=== PATIENT | female | born 1995 | race Caucasian/White ===

== ENCOUNTER 2017-10-22 22:10 | Emergency (ER) | payer BC ==
[2017-10-22 22:34] VITALS: BP 139/86
[2017-10-22] MEDS ORDERED: Alum Hydrox/Mag Hydrox/Simeth 15 ML, Lidocaine 2% 15 ML PO ONE ×2 (22:44)
[2017-10-23] MEDS ORDERED: Famotidine 20 MG Tab PO ONE (00:28)
--- NOTE | 2017-10-23 00:30 | EDM.PDOC ---
ED HPI GENERAL MEDICAL PROBLEM - General Chief Complaint: Respiratory Problem Stated Complaint: PAIN IN CHEST AREA Time Seen by Provider: 10/22/17 22:25 Source of Information: Reports: Patient History Limitations: Reports: No Limitations - History of Present Illness INITIAL COMMENTS - FREE TEXT/NARRATIVE: pt arrived having pain in her lower chest. At first she had the sensation that something was caught in the esophagus. It does hurt more when she takes a deep breath. She has not vomited. Onset: Today, Other ( She has had the discomfort all afternoon. 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: Psychiatric History: Reports: ADHD Endocrine/Metabolic History: Reports: Hypothyroidism - Infectious Disease History Infectious Disease History: Reports: Chicken Pox - Past Surgical History HEENT Surgical History: Reports: Adenoidectomy, Tonsillectomy Other HEENT Surgeries/Procedures: adnoids GI Surgical History: Reports: Cholecystectomy Social & Family History - Tobacco Use Smoking Status *Q: Never Smoker - Caffeine Use Caffeine Use: Reports: Coffee, Energy Drinks, Soda - Recreational Drug Use Recreational Drug Use: No ED ROS GENERAL - Review of Systems Review Of Systems: See Below Constitutional: Reports: No Symptoms HEENT: Reports: No Symptoms Respiratory: Reports: No Symptoms Cardiovascular: Reports: Other (pain in the lower chest like something is in the esphogus. ) Endocrine: Reports: No Symptoms GI/Abdominal: Reports: Abdominal Pain, Other (pain in the upper abdoman. ) : Reports: No Symptoms Musculoskeletal: Reports: No Symptoms Skin: Reports: No Symptoms ED EXAM, GENERAL - Physical Exam Exam: See Below Free Text/Narrative:: pt arrived with pain in the middle of her lower chest. She felt like something was caught in the espohagus. Exam Limited By: No Limitations General Appearance: Alert, Moderate Distress Ears: Normal TMs Nose: Normal Inspection Throat/Mouth: Normal Inspection Head: Atraumatic Neck: Normal Inspection Respiratory/Chest: No Respiratory Distress, Other ( chest was completely clear. ) Cardiovascular: Regular Rate, Rhythm GI/Abdominal: Soft, Other (mild epigastric tenderness) (Female) Exam: Deferred Rectal (Female) Exam: Deferred Back Exam: Normal Inspection Extremities: Normal Inspection Neurological: Alert, Oriented, Normal Cognition Course - Vital Signs Last Recorded V/S: Last Vital Signs Temp 36.6 C 10/22/17 22:51 Pulse 83 10/22/17 22:51 Resp 16 10/22/17 22:51 BP 139/86 10/22/17 22:51 Pulse Ox 100 10/22/17 22:51 - Orders/Labs/Meds Orders: Active Orders 24 hr Category Date Time Status Chest 2V [CR] Stat Exams 10/22/17 22:43 Taken Labs: Laboratory Tests 10/22/17 10/22/17 Range/Units 22:59 22:59 WBC 8.0 (4.5-11.0) K/uL RBC 4.58 (3.30-5.50) M/uL Hgb 12.7 (12.0-15.0) g/dL Hct 37.8 (36.0-48.0) % MCV 83 (80-98) fL MCH 28 (27-31) pg MCHC 34 (32-36) % Plt Count 313 (150-400) K/uL Neut % (Auto) 55 (36-66) % Lymph % (Auto) 35 (24-44) % [place] % (Auto) 8 H (2-6) % Eos % (Auto) 2 (2-4) % Baso % (Auto) 0 (0-1) % Sodium 137 L (140-148) mmol/L Potassium 4.0 (3.6-5.2) mmol/L Chloride 102 (100-108) mmol/L Carbon Dioxide 27 (21-32) mmol/L Anion Gap 12.0 (5.0-14.0) mmol/L BUN 14 (7-18) mg/dL Creatinine 0.7 (0.6-1.0) mg/dL Est Cr Clr Drug Dosing 102.51 mL/min Estimated GFR (MDRD) > 60 (>60) Glucose 103 (74-106) mg/dL Calcium 8.9 (8.5-10.1) mg/dL Total Bilirubin 0.2 (0.2-1.0) mg/dL AST 22 (15-37) U/L ALT 30 D (12-78) U/L Alkaline Phosphatase 48 (46-116) U/L Total Protein 7.4 (6.4-8.2) g/dL Albumin 3.7 (3.4-5.0) g/dL Globulin 3.7 H (2.3-3.5) g/dL Albumin/Globulin Ratio 1.0 L (1.2-2.2) Meds: Medications Discontinued Medications Generic Name Dose Route Start Last Admin Trade Name Rebecca PRN Reason Stop Dose Admin Al Hydroxide/Mg Hydroxide 15 0 ml 10/22/17 22:44 10/22/17 22:48 ml/ Lidocaine HCl 15 ml PO 10/22/17 22:45 15 ml ONETIME ONE Administration Famotidine 20 mg 10/23/17 00:28 Pepcid PO 10/23/17 00:29 ONETIME ONE - Re-Assessments/Exams Free Text/Narrative Re-Assessment/Exam: 10/23/17 00:38 pt had normal chems and normal wbc. Her chest xray was normal. She was given a Gi cocktail which helpful and at this point her pain is gone. Departure - Departure Time of Disposition: 00:26 Disposition: Home, Self-Care 01 Condition: Fair Clinical Impression: GERD (gastroesophageal reflux disease) - Discharge Information Referrals: Keeley Heredia CNM [Primary Care Provider] - Forms: ED Department Discharge Care Plan Goals: avoid eating large meals and then lying flat, prilosec 20mg each am, maalox 2 tbsp at bedtime, rtc if problems. - My Orders Last 24 Hours: My Active Orders 10/22/17 22:43 Chest 2V [CR] Stat - Assessment/Plan Last 24 Hours: My Active Orders 10/22/17 22:43 Chest 2V [CR] Stat
--- NOTE | 2017-10-23 11:41 | CR ---
CHEST: 2 view CLINICAL HISTORY:SOB, chest pain COMPARISON:None FINDINGS: Heart size and pulmonary vascularity are normal. Lung reza are clear. Impression: No acute cardiopulmonary process.
== END 2017-10-23 00:40 | disposition home or self-care (01) ==
LOC: JP.ED 22:10
DX: K21.9 Gastro-esophageal reflux disease without esophagitis (principal)
CPT/HCPCS: 36415; 71046; 80053; 85025; 99285; A9270

== ENCOUNTER 2018-06-23 12:08 | Emergency (ER) | payer BC ==
[2018-06-23 12:52] VITALS: BP 124/85
--- NOTE | 2018-06-23 13:07 | EDM.PDOC ---
ED HPI GENERAL MEDICAL PROBLEM - General Chief Complaint: Gastrointestinal Problem Stated Complaint: STOMACH PAIN, NAUSEA, LIGHT HEADED Time Seen by Provider: 06/23/18 12:50 Source of Information: Reports: Patient History Limitations: Reports: No Limitations - History of Present Illness Onset: Sudden (woke at 2am with vomiting and light-headedness. slept entire night after that. 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: Neurological History: Reports: Migraines Psychiatric History: Reports: ADHD Endocrine/Metabolic History: Reports: Hypothyroidism, Obesity/BMI 30+ Hematologic History: Reports: Anemia - Infectious Disease History Infectious Disease History: Reports: Chicken Pox - Past Surgical History HEENT Surgical History: Reports: Adenoidectomy, Tonsillectomy GI Surgical History: Reports: Cholecystectomy Female Surgical History: Reports: Section Social & Family History - Tobacco Use Smoking Status *Q: Former Smoker Used Tobacco, but Quit: Yes Month/Year Tobacco Last Used: 1 year - Caffeine Use Caffeine Use: Reports: Coffee, Soda - Recreational Drug Use Recreational Drug Use: No - Living Situation & Occupation Occupation: Employed (lives with her Partner and children, works at the [employer]) ED ROS GENERAL - Review of Systems Review Of Systems: ROS reveals no pertinent complaints other than HPI. Constitutional: Reports: No Symptoms HEENT: Reports: No Symptoms Respiratory: Reports: No Symptoms Cardiovascular: Reports: No Symptoms Endocrine: Reports: No Symptoms GI/Abdominal: Reports: Diarrhea, Nausea (persists), Vomiting : Reports: No Symptoms Musculoskeletal: Reports: No Symptoms Skin: Reports: No Symptoms Neurological: Reports: No Symptoms Psychiatric: Reports: No Symptoms Hematologic/Lymphatic: Reports: No Symptoms Immunologic: Reports: No Symptoms ED EXAM, GI/ABD - Physical Exam Exam: See Below Text/Narrative:: Patient not acute appearing, talking on phone, more or less lounging in cart talking. Describes vague feelings of nausea since one episode of vomiting at 2 am and feeling lightheaded after that. Slept it off. Woke this morning feeling flushed in the face, with one episode of diarrhea. Started Levothyroxine (dose unknown) 8-10 days ago, but states that she had taken it prior to this new round and didn't experience adverse effects. Denies UTI symptoms, no dysuria, freguency or urgency or changes to bladder, color or smell of urine. Gall bladder removed 2012. Normal period, LMP early in the month. Denies chance of . Course - Vital Signs Text/Narrative:: After discussion with preceptor, his suggestion was to treat her symptoms and ask her to follow up with PCP. Patient states that has appointment on Monday and will do that. Patient agreeable to this plan. Note given to stay home from work; patient works in [employer]. Last Recorded V/S: Last Vital Signs Temp 35.6 C 06/23/18 12:15 Pulse 97 06/23/18 12:15 Resp 18 06/23/18 12:15 BP 124/85 06/23/18 12:15 Pulse Ox 99 06/23/18 12:15 Departure - Departure Time of Disposition: 13:16 Disposition: Home, Self-Care 01 Clinical Impression: Nausea & vomiting, Abdominal pain - Discharge Information *PRESCRIPTION DRUG MONITORING PROGRAM REVIEWED*: Not Applicable *COPY OF PRESCRIPTION DRUG MONITORING REPORT IN PATIENT JOCE: Not Applicable Instructions: Nausea, Adult Referrals: Keeley Heredia CNM [Primary Care Provider] - Forms: ED Department Discharge Additional Instructions: Prescription for Zofran 4mg #10 given. Will take OTC anti-diarrheal this evening if diarrhea remains a problem. Will be on clear liquid diet for 24 hours. Has appointment with PCP on Monday. To bring up this recent GI illness if not well then. Care Plan Goals: Note given to remain home from work today.
== END 2018-06-23 13:20 | disposition home or self-care (01) ==
LOC: JP.ED 12:08
DX: R11.2 Nausea with vomiting, unspecified (principal); R10.9 Unspecified abdominal pain; E78.00 Pure hypercholesterolemia, unspecified; E03.9 Hypothyroidism, unspecified; Z87.891 Personal history of nicotine dependence; Z79.899 Other long term (current) drug therapy
CPT/HCPCS: 99283

== ENCOUNTER 2018-08-18 23:34 | Emergency (ER) | payer BC ==
[2018-08-19 00:22] VITALS: BP 120/72
[2018-08-19] MEDS ORDERED: Bacitracin Oint 1 GM U/D Packet TOP ONE (00:52)
--- NOTE | 2018-08-19 00:55 | EDM.PDOC ---
ED HPI GENERAL MEDICAL PROBLEM - General Chief Complaint: Laceration Stated Complaint: LEFT MIDDLE FINGER LACERATION Time Seen by Provider: 08/19/18 00:08 Source of Information: Reports: Patient History Limitations: Reports: No Limitations - History of Present Illness INITIAL COMMENTS - FREE TEXT/NARRATIVE: This patient cut her left middle finger on a sharp knife while washing dishes. 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: Neurological History: Reports: Migraines Psychiatric History: Reports: ADHD Endocrine/Metabolic History: Reports: Hypothyroidism, Obesity/BMI 30+ Hematologic History: Reports: Anemia - Infectious Disease History Infectious Disease History: Reports: Chicken Pox - Past Surgical History HEENT Surgical History: Reports: Adenoidectomy, Tonsillectomy GI Surgical History: Reports: Cholecystectomy Female Surgical History: Reports: Section Social & Family History - Family History Family Medical History: Noncontributory - Tobacco Use Smoking Status *Q: Never Smoker Second Hand Smoke Exposure: No - Caffeine Use Caffeine Use: Reports: Coffee - Recreational Drug Use Recreational Drug Use: No - Living Situation & Occupation Occupation: Employed (lives with her Partner and children, works at the [employer]) ED ROS GENERAL - Review of Systems Review Of Systems: ROS reveals no pertinent complaints other than HPI. ED EXAM, SKIN/RASH Exam: See Below Exam Limited By: No Limitations General Appearance: Alert Extremities: Other (2 cm superficial laceration to the thumb side of the left middle finger distal phalanx. Neurovascular tendon all intact) Course - Vital Signs Last Recorded V/S: Last Vital Signs Temp 36.4 C 08/19/18 00:21 Pulse 88 08/19/18 00:21 Resp 18 08/19/18 00:21 BP 120/72 08/19/18 00:21 Pulse Ox 97 08/19/18 00:21 - Orders/Labs/Meds Orders: Active Orders 24 hr Category Date Time Status Bacitracin [Bacitracin Oint 1 GM] Med 08/19/18 00:52 Once 1 dose TOP ONETIME ONE Meds: Medications Discontinued Medications Generic Name Dose Route Start Last Admin Trade Name Rebecca PRN Reason Stop Dose Admin Lidocaine HCl 5 ml 08/19/18 00:10 08/19/18 00:18 Xylocaine-Mpf 1% INJECT 08/19/18 00:11 5 ml ONETIME ONE Administration - Re-Assessments/Exams Free Text/Narrative Re-Assessment/Exam: 08/19/18 00:53 Procedure: Laceration repair The finger was anesthetized with 1% plain lidocaine. The wound was then scrubbed with saline sponges and then irrigated copiously with normal saline. Wound was closed with a running 5-0 nylon stitch. Bacitracin and a dressing were applied Departure - Departure Time of Disposition: 00:54 Disposition: Home, Self-Care 01 Condition: Fair Clinical Impression: Laceration of finger of left hand - Discharge Information Referrals: Keeley Heredia CNM [Primary Care Provider] - Additional Instructions: Wash with soap and water daily. Apply a dab of antibiotic ointment and cover with a dressing. Keep the dressing clean and dry. Watch for signs of infection. Have the sutures removed in 10 days. - My Orders Last 24 Hours: My Active Orders 08/19/18 00:52 Bacitracin [Bacitracin Oint 1 GM] 1 dose TOP ONETIME ONE - Assessment/Plan Last 24 Hours: My Active Orders 08/19/18 00:52 Bacitracin [Bacitracin Oint 1 GM] 1 dose TOP ONETIME ONE
== END 2018-08-19 01:00 | disposition home or self-care (01) ==
LOC: JP.ED 23:34
DX: S61.213A Laceration without foreign body of left middle finger without damage to nail, initial encounter (principal); E03.9 Hypothyroidism, unspecified; E66.9 Obesity, unspecified; Z79.899 Other long term (current) drug therapy; Z86.2 Personal history of diseases of the blood and blood-forming organs and certain disorders involving the immune mechanism; Z98.890 Other specified postprocedural states; Z90.49 Acquired absence of other specified parts of digestive tract; W26.0XXA Contact with knife, initial encounter
CPT/HCPCS: 12001; 99282; J2001

== ENCOUNTER 2019-03-06 12:53 | Emergency (ER) | payer BC ==
[2019-03-06 13:11] VITALS: BP 125/95; PULSE 94
[2019-03-06] MEDS ORDERED: Sodium Chloride 0.9% 10 ML Syringe FLUSH PRN (14:10)
[2019-03-06] MEDS ORDERED: HYDROmorphone 0.5 MG/0.5 ML Syringe IVPUSH ONE (14:11)
--- NOTE | 2019-03-06 14:12 | EDM.PDOC ---
ED HPI GENERAL MEDICAL PROBLEM - General Chief Complaint: General Stated Complaint: SWOLLEN ON THE LEFT SIDE OF THE FACE Time Seen by Provider: 03/06/19 14:11 Source of Information: Reports: Patient History Limitations: Reports: No Limitations - History of Present Illness INITIAL COMMENTS - FREE TEXT/NARRATIVE: pt has marked swelling of the left facial area. This has uincreased markedly over the nite. Onset: Gradual, Other ( the swelling started last nite. She does have carrious upper teeth. 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: Neurological History: Reports: Migraines Psychiatric History: Reports: ADHD Endocrine/Metabolic History: Reports: Hypothyroidism, Obesity/BMI 30+ Hematologic History: Reports: Anemia - Infectious Disease History Infectious Disease History: Reports: Chicken Pox - Past Surgical History Head Surgeries/Procedures: Reports: None HEENT Surgical History: Reports: Adenoidectomy, Tonsillectomy GI Surgical History: Reports: Cholecystectomy Female Surgical History: Reports: Section Endocrine Surgical History: Reports: None Neurological Surgical History: Reports: None Dermatological Surgical History: Reports: None Social & Family History - Family History Family Medical History: Noncontributory - Tobacco Use Smoking Status *Q: Current Some Day Smoker Years of Tobacco use: 5 Packs/Tins Daily: 0.1 Used Tobacco, but Quit: No Second Hand Smoke Exposure: No - Caffeine Use Caffeine Use: Reports: Soda - Recreational Drug Use Recreational Drug Use: No - Living Situation & Occupation Occupation: Employed (lives with her Partner and children, works at the [employer]) ED ROS GENERAL - Review of Systems Review Of Systems: See Below Constitutional: Reports: Fever HEENT: Reports: Other ( facial swelling and pain. ) Respiratory: Reports: No Symptoms Cardiovascular: Reports: No Symptoms Endocrine: Reports: No Symptoms GI/Abdominal: Reports: No Symptoms : Reports: No Symptoms Musculoskeletal: Reports: No Symptoms Skin: Reports: No Symptoms ED EXAM, GENERAL - Physical Exam Exam: See Below Free Text/Narrative:: pt has marked facial swellin on the left. This did come up over nite. She does have carious teeth. Exam Limited By: No Limitations General Appearance: Alert, Anxious, Mild Distress Ears: Normal TMs Nose: Normal Inspection Throat/Mouth: Normal Inspection, Other (pt has facial swelling on the left face. This does involve most of the left facial area. f) Head: Atraumatic Neck: Normal Inspection, Lymphadenopathy (L) Respiratory/Chest: No Respiratory Distress Cardiovascular: Regular Rate, Rhythm GI/Abdominal: Soft, Non-Tender (Female) Exam: Deferred Rectal (Female) Exam: Deferred Back Exam: Normal Inspection Extremities: Normal Inspection Course - Vital Signs Last Recorded V/S: Last Vital Signs Temp 37.1 C 03/06/19 13:14 Pulse 94 03/06/19 13:14 Resp 19 03/06/19 13:14 BP 125/95 H 03/06/19 13:14 Pulse Ox 98 03/06/19 13:14 - Orders/Labs/Meds Labs: Laboratory Tests 03/06/19 03/06/19 Range/Units 14:22 14:22 WBC 9.4 (4.5-11.0) K/uL RBC 5.08 (3.30-5.50) M/uL Hgb 13.5 (12.0-15.0) g/dL Hct 41.9 (36.0-48.0) % MCV 83 (80-98) fL MCH 27 (27-31) pg MCHC 32 (32-36) % Plt Count 296 (150-400) K/uL Neut % (Auto) 73 H (36-66) % Lymph % (Auto) 20 L (24-44) % [place] % (Auto) 7 H (2-6) % Eos % (Auto) 1 L (2-4) % Baso % (Auto) 0 (0-1) % Sodium 136 L (140-148) mmol/L Potassium 3.7 (3.6-5.2) mmol/L Chloride 101 (100-108) mmol/L Carbon Dioxide 24 (21-32) mmol/L Anion Gap 14.7 H (5.0-14.0) mmol/L BUN 6 L D (7-18) mg/dL Creatinine 0.6 (0.6-1.0) mg/dL Est Cr Clr Drug Dosing 118.57 mL/min Estimated GFR (MDRD) > 60 (>60) Glucose 99 (74-106) mg/dL Calcium 9.6 (8.5-10.1) mg/dL Meds: Medications Discontinued Medications Generic Name Dose Route Start Last Admin Trade Name Freq PRN Reason Stop Dose Admin Hydromorphone HCl 0.5 mg 03/06/19 14:11 03/06/19 14:21 Dilaudid IVPUSH 03/06/19 14:12 0.5 mg ONETIME ONE Administration Clindamycin Phosphate 600 mg/ 54 mls @ 100 mls/hr 03/06/19 15:37 03/06/19 15: 44 Sodium Chloride IV 03/06/19 16:09 100 mls/hr ONETIME ONE Administration Sodium Chloride 10 ml 03/06/19 14:10 03/06/19 14:21 Saline Flush FLUSH 10 ml ASDIRECTED PRN Administration Keep Vein Open - Re-Assessments/Exams Free Text/Narrative Re-Assessment/Exam: 03/06/19 15:43 pt had a cat scan of ht face which revealed possible abcesses on the upper teeth. The sinues were clear. Evidence of alot of cellulitis. Departure - Departure Time of Disposition: 15:44 Disposition: Home, Self-Care 01 Condition: Fair Clinical Impression: Cellulitis of face, Infection of tooth - Discharge Information Instructions: Dental Abscess, [id number], Cellulitis, Adult, [id number] Referrals: PCP,None [Primary Care Provider] - Forms: ED Department Discharge Care Plan Goals: motrin 600mg q6h as needed for pain, norco 5/325 q6h prn for pain, clindomycin 300mg tid for 10 days. Use alot of yogurt and probiotic while on the antibiotic , cool pack facial area. dental referal for mar 11 Sepsis Event Note - Evaluation Sepsis Screening Result: No Definite Risk - Focused Exam Date Exam was Performed: 03/09/19 Time Exam was Performed: 08:02
--- NOTE | 2019-03-06 14:57 | CRLCT ---
INDICATION: 355 imagesfacial infection on left side INDICATION: Left-sided facial infection. TECHNIQUE: 2 mm axial imaging has been performed through the facial bones. Sagittal and coronal reconstructions have been obtained. FINDINGS: No fracture is seen of the facial bones. There is abnormal soft tissue swelling along the left facial region. This is at the base of the nose and along the cheek. This extends into the periorbital region on the left. Stranding of the subcutaneous fat is noted. No organized abscess is noted. There is mucosal thickening of the bilateral maxillary sinuses without significant air-fluid levels. There is mucosal thickening in the ethmoid air cells on the right. Mild mucosal thickening of the sphenoid sinus on the right is noted. The frontal and left sphenoid sinuses appear relatively clear. Mastoid air cells are clear. There is lucency associated with the base of the root of multiple teeth of the maxilla as well as a premolar on the left mandible. There is bone loss laterally of the mandible and of the maxilla. Findings are suspicious for a tooth abscess as a potential source for the inflammatory change. The nasopharynx, oropharynx and hypopharynx are symmetric and within normal limits. There are multiple lymph nodes along the bilateral neck. These are borderline prominent lymph nodes in the level 2 region on the left. The largest measures 13 x 11 mm. The bilateral parotid and submandibular glands are symmetric and unremarkable. Lymphadenopathy in the level 1 region adjacent the submandibular glands is identified bilaterally. The largest measures 18 x 14 mm on the left. IMPRESSION: 1. There is significant stranding of the subcutaneous fat and soft tissue swelling of the left facial region as detailed above. This extends up superiorly to the periorbital region and along the base of the nose. No organized abscess is seen. 2. There is lymphadenopathy identified in the level 1 region bilaterally adjacent to the submandibular glands. Other small lymph nodes in the neck are identified which are borderline prominent on the left. 3. There are areas of lucency associated the roots of multiple teeth as detailed above which could represent a source of infection due to a dental abscess. No significant fluid however is seen associated with the left maxilla or mandible. 4. Mucosal thickening in the paranasal sinuses is noted as detailed above. Dictated by Theo Ray MD @ 03/06/2019 2:56:34 PM Please note that all CT scans at this facility use dose modulation, iterative reconstruction, and/or weight-based dosing when appropriate to reduce radiation dose to as low as reasonably achievable. Dictated by: Theo Ray MD @ 03/06/2019 14:56:45 (Electronically Signed)
== END 2019-03-06 16:14 | disposition home or self-care (01) ==
LOC: JP.ED 12:53
DX: K04.7 Periapical abscess without sinus (principal); L03.211 Cellulitis of face; E66.9 Obesity, unspecified; E03.9 Hypothyroidism, unspecified; F17.210 Nicotine dependence, cigarettes, uncomplicated; Z98.890 Other specified postprocedural states; Z90.49 Acquired absence of other specified parts of digestive tract; Z79.899 Other long term (current) drug therapy
CPT/HCPCS: 36415; 70486; 80048; 85025; 96365; 96375; 99284-25; J1170; J3490; J7050

== ENCOUNTER 2019-10-12 22:51 | Emergency (ER) | payer SELFPAY ==
[2019-10-12 23:03] VITALS: BP 124/81; PULSE 78
--- NOTE | 2019-10-12 23:40 | EDM.PDOC ---
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 Problem Stated Complaint: FALL,CRAMPING 14 WKS PREG Time Seen by Provider: 10/12/19 23:20 Source of Information: Reports: Patient, RN Notes Reviewed History Limitations: Reports: No Limitations - History of Present Illness INITIAL COMMENTS - FREE TEXT/NARRATIVE: 24-year-old female presents emergency department today following abdominal trauma, she is 14 weeks 3 days intrauterine she is a 4 para 2 states about 4:00 this afternoon she had fallen off a bench that had broken landed on her right side of her abdomen started having intermittent cramping a couple hours before presentation to the emergency department. 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: Neurological History: Reports: Migraines Psychiatric History: Reports: ADHD Endocrine/Metabolic History: Reports: Hypothyroidism, Obesity/BMI 30+ Hematologic History: Reports: Anemia - Infectious Disease History Infectious Disease History: Reports: Chicken Pox - Past Surgical History Head Surgeries/Procedures: Reports: None HEENT Surgical History: Reports: Adenoidectomy, Tonsillectomy GI Surgical History: Reports: Cholecystectomy Female Surgical History: Reports: Section Endocrine Surgical History: Reports: None Neurological Surgical History: Reports: None Dermatological Surgical History: Reports: None Social & Family History - Family History Family Medical History: Noncontributory - Tobacco Use Smoking Status *Q: Never Smoker - Caffeine Use Caffeine Use: Reports: Soda - Living Situation & Occupation Occupation: Employed (lives with her Partner and children, works at the [employer]) ED ROS GENERAL - Review of Systems Review Of Systems: See Below Constitutional: Reports: No Symptoms HEENT: Reports: No Symptoms Respiratory: Reports: No Symptoms Cardiovascular: Reports: No Symptoms GI/Abdominal: Reports: Abdominal Pain (Cramping) : Reports: No Symptoms ED EXAM - Physical Exam Exam: See Below Text/Narrative:: Bedside ultrasound was performed abdomen is soft and nontender ultrasound reveals good heart tones approximately 160 good movement amniotic fluid is homogeneous throughout the uterine cavity. Exam Limited By: No Limitations General Appearance: Alert, WD/WN, No Apparent Distress Respiratory/Chest: No Respiratory Distress Course - Vital Signs Last Recorded V/S: Last Vital Signs Temp 96.9 F 10/12/19 23:12 Pulse 78 10/12/19 23:12 Resp 16 10/12/19 23:12 BP 124/81 10/12/19 23:12 Pulse Ox 100 10/12/19 23:12 Departure - Departure Time of Disposition: 23:39 Disposition: Home, Self-Care 01 Condition: Fair Clinical Impression: Blunt trauma of abdominal wall Qualifiers: Encounter type: initial encounter Qualified Code(s): S39.81XA - Other specified injuries of abdomen, initial encounter - Discharge Information Referrals: Keeley Heredia CNM [Primary Care Provider] - Forms: ED Department Discharge, ED Return to Work/School Form Additional Instructions: Continue to monitor your symptoms, please call or return to the emergency department worsening of symptoms Sepsis Event Note (ED) - Evaluation Sepsis Screening Result: No Definite Risk - Focused Exam Vital Signs: Vital Signs Temp Pulse Resp BP Pulse Ox 10/12/19 23:12 96.9 F 78 16 124/81 100 10/12/19 23:00 96.9 F 78 16 124/81 100 - Assessment/Plan Plan: Assessment Acuity = acute Site and laterality = cramping with abdominal trauma complicated patient that is 14 weeks 3 days intrauterine Etiology = a fall at home Manifestations = none Location of injury = Home Lab values = none Plan I talked her about further observation and evaluation for period of time however because she is only 14 weeks she is not viable I talked to her about the possibility of miscarriage she understands she is going to do watchful waiting return to the emergency department with any worsening of symptoms will take it easy for the next couple of days and then follow-up with her OB provider This note was dictated using [employer] voice recognition software please call with any questions on syntax or grammar.
== END 2019-10-12 23:50 | disposition home or self-care (01) ==
LOC: JP.ED 22:51
DX: O9A.212 Injury, poisoning and certain other consequences of external causes complicating pregnancy, second trimester (principal); S39.91XA Unspecified injury of abdomen, initial encounter; O99.282 Endocrine, nutritional and metabolic diseases complicating pregnancy, second trimester; E03.9 Hypothyroidism, unspecified; O99.212 Obesity complicating pregnancy, second trimester; Z98.890 Other specified postprocedural states; Z90.49 Acquired absence of other specified parts of digestive tract; W08.XXXA Fall from other furniture, initial encounter; Z3A.14 14 weeks gestation of pregnancy
CPT/HCPCS: 99283

== ENCOUNTER 2019-12-02 19:48 | Emergency (ER) | payer BC, MEDICAID ==
[2019-12-02] MEDS ORDERED: Lactated Ringers 1,000 ML IV ONE (21:16)
[2019-12-02] MEDS ORDERED: Acetaminophen 325 MG Tab PO ONE (21:16)
[2019-12-02] MEDS ORDERED: Sodium Chloride 0.9% 10 ML Syringe FLUSH PRN (21:16)
[2019-12-02] MEDS ORDERED: Metoclopramide 10 MG/2 ML SDV IVPUSH ONE (21:18)
--- NOTE | 2019-12-02 21:24 | EDM.PDOC ---
ED HPI GENERAL MEDICAL PROBLEM - General Chief Complaint: Headache Stated Complaint: MIGRAINE Time Seen by Provider: 12/02/19 20:58 Source of Information: Reports: Patient, RN Notes Reviewed History Limitations: Reports: No Limitations - History of Present Illness INITIAL COMMENTS - FREE TEXT/NARRATIVE: 24-year-old female presents emergency department a complaint of migraine type headache, she does have a history of migraines last migraine was about 3 months ago she is currently 21-4/7 weeks intrauterine was initially evaluated by OB found to have a blood pressure systolic range 102 heart tones 150s urinalysis unremarkable no proteinuria. Subsequently sent to the emergency department for further evaluation and treatment. She states she has been using Tylenol ES use Tylenol at 2 this afternoon. She does feel nauseated no other symptoms at this time Headache Pain Score (Numeric/FACES): 6 - Related Data Allergies Allergy/AdvReac Type Severity Reaction Status Date / Time No Known Allergies Allergy Verified 12/02/19 20:55 Home Meds: Home Meds Levothyroxine [Synthroid] 50 mcg PO ACBREAKFAST 06/23/18 [History] Pnv No.95/Ferrous Fum/Folic AC [ Caplet] 1 tab PO DAILY 10/12/19 [History] Past Medical History Cardiovascular History: Reports: High Cholesterol Gastrointestinal History: Reports: Cholelithiasis, GERD POT FILLER History: Reports: , Other (See Below) Other POT FILLER History: now 22 weeks Neurological History: Reports: Migraines Psychiatric History: Reports: ADHD Endocrine/Metabolic History: Reports: Hypothyroidism, Obesity/BMI 30+ Hematologic History: Reports: Anemia - Infectious Disease History Infectious Disease History: Reports: Chicken Pox - Past Surgical History Head Surgeries/Procedures: Reports: None HEENT Surgical History: Reports: Adenoidectomy, Tonsillectomy GI Surgical History: Reports: Cholecystectomy Female Surgical History: Reports: Section Endocrine Surgical History: Reports: None Neurological Surgical History: Reports: None Dermatological Surgical History: Reports: None Social & Family History - Family History Family Medical History: Noncontributory - Tobacco Use Smoking Status *Q: Never Smoker Second Hand Smoke Exposure: No - Caffeine Use Caffeine Use: Reports: Soda - Recreational Drug Use Recreational Drug Use: No - Living Situation & Occupation Occupation: Employed (lives with her Partner and children, works at the [employer]) ED ROS GENERAL - Review of Systems Review Of Systems: See Below Constitutional: Reports: No Symptoms HEENT: Reports: No Symptoms Respiratory: Reports: No Symptoms Cardiovascular: Reports: No Symptoms GI/Abdominal: Reports: Nausea. Denies: Vomiting Neurological: Reports: Headache - Physical Exam Exam: See Below Exam Limited By: No Limitations General Appearance: Alert, WD/WN, No Apparent Distress Eye Exam: Bilateral Eye: EOMI, Normal Fundi, Normal Inspection, PERRL Respiratory/Chest: No Respiratory Distress, Lungs Clear Cardiovascular: Regular Rate, Rhythm, No Murmur Course - Vital Signs Last Recorded V/S: Last Vital Signs Temp 97.5 F 12/02/19 22:30 Pulse 71 12/02/19 22:30 Resp 16 12/02/19 22:30 BP 111/66 12/02/19 22:30 Pulse Ox 99 12/02/19 22:30 - Orders/Labs/Meds Orders: Active Orders 24 hr Category Date Time Status Peripheral IV Care [RC] . DIRECTED Care 12/02/19 21:16 Active Sodium Chloride 0.9% [Saline Flush] Med 12/02/19 21:16 Active 10 ml FLUSH ASDIRECTED PRN Peripheral IV Insertion Adult [OM.PC] Urgent Oth 12/02/19 21:16 Ordered Medication Orders Sodium Chloride (Saline Flush) 10 ml FLUSH ASDIRECTED PRN PRN Reason: Keep Vein Open Labs: Laboratory Tests 12/02/19 12/02/19 Range/Units 21:30 21:30 WBC 6.0 (4.5-11.0) K/uL RBC 3.76 (3.30-5.50) M/uL Hgb 10.4 L D (12.0-15.0) g/dL Hct 32.2 L (36.0-48.0) % MCV 86 (80-98) fL MCH 28 (27-31) pg MCHC 32 (32-36) % Plt Count 262 (150-400) K/uL Neut % (Auto) 66 (36-66) % Lymph % (Auto) 24 (24-44) % Yancey % (Auto) 9 H (2-6) % Eos % (Auto) 1 L (2-4) % Baso % (Auto) 0 (0-1) % Sodium 139 L (140-148) mmol/L Potassium 3.6 (3.6-5.2) mmol/L Chloride 103 (100-108) mmol/L Carbon Dioxide 26 (21-32) mmol/L Anion Gap 13.6 (5.0-14.0) mmol/L BUN 6 L (7-18) mg/dL Creatinine 0.6 (0.6-1.0) mg/dL Est Cr Clr Drug Dosing 112.38 mL/min Estimated GFR (MDRD) > 60 (>60) Glucose 93 (74-106) mg/dL Calcium 9.2 (8.5-10.1) mg/dL Total Bilirubin 0.3 (0.2-1.0) mg/dL AST 9 L (15-37) U/L ALT 12 (12-78) U/L Alkaline Phosphatase 44 L (46-116) U/L Total Protein 6.6 (6.4-8.2) g/dL Albumin 2.8 L (3.4-5.0) g/dL Globulin 3.8 H (2.3-3.5) g/dL Albumin/Globulin Ratio 0.7 L (1.2-2.2) Meds: Medications Generic Name Dose Route Start Last Admin Trade Name Freq PRN Reason Stop Dose Admin Sodium Chloride 10 ml 12/02/19 21:16 Saline Flush FLUSH ASDIRECTED PRN Keep Vein Open Discontinued Medications Generic Name Dose Route Start Last Admin Trade Name Freq PRN Reason Stop Dose Admin Acetaminophen 650 mg 12/02/19 21:16 12/02/19 21:43 Tylenol PO 12/02/19 21:17 650 mg NOW ONE Administration Lactated Ringer's 1,000 mls @ 999 mls/hr 12/02/19 21:16 12/02/19 21:50 Ringers, Lactated IV 12/02/19 22:16 999 mls/hr BOLUS ONE Administration Metoclopramide HCl 10 mg 12/02/19 21:18 12/02/19 21:48 Reglan IVPUSH 12/02/19 21:19 10 mg ONETIME ONE Administration Departure - Departure Time of Disposition: 22:56 Disposition: Home, Self-Care 01 Condition: Fair Clinical Impression: Migraine - Discharge Information Instructions: Migraine Headache, [id number] Referrals: Keeley Heredia CNM [Primary Care Provider] - Forms: ED Department Discharge Additional Instructions: Continue with your regular medications, please followup with your primary care provider in 3-5 days if not better, please call return to the emergency department with worsening of symptoms. Sepsis Event Note (ED) - Evaluation Sepsis Screening Result: No Definite Risk - Focused Exam Vital Signs: Vital Signs Temp Pulse Resp BP Pulse Ox 12/02/19 22:30 97.5 F 71 16 111/66 99 12/02/19 21:00 96.8 F L 81 16 120/72 97 12/02/19 20:38 96.8 F L 81 16 120/72 97 - My Orders Last 24 Hours: My Active Orders 12/02/19 21:16 Peripheral IV Care [RC] . DIRECTED Sodium Chloride 0.9% [Saline Flush] 10 ml FLUSH ASDIRECTED PRN Peripheral IV Insertion Adult [OM.PC] Urgent - Assessment/Plan Last 24 Hours: My Active Orders 12/02/19 21:16 Peripheral IV Care [RC] . DIRECTED Sodium Chloride 0.9% [Saline Flush] 10 ml FLUSH ASDIRECTED PRN Peripheral IV Insertion Adult [OM.PC] Urgent Plan: Assessment Acuity = acute Site and laterality = migraine complaint patient 22 weeks intrauterine Etiology = unknown Manifestations = nausea Location of injury = Home Lab values = hemoglobin low 10.4 consistent normochromic anemia CMP unremarkable urinalysis reveals no protein Plan Good improvement 1 L fluids, Tylenol and metoclopramide she will follow-up with her OB provider this week This note was dictated using [employer] voice recognition software please call with any questions on syntax or grammar.
[2019-12-02 22:30] VITALS: BP 111/66; PULSE 71
== END 2019-12-02 23:13 | disposition home or self-care (01) ==
LOC: JP.ED 19:48
DX: O99.352 Diseases of the nervous system complicating pregnancy, second trimester (principal); G43.909 Migraine, unspecified, not intractable, without status migrainosus; O99.282 Endocrine, nutritional and metabolic diseases complicating pregnancy, second trimester; E03.9 Hypothyroidism, unspecified; O99.212 Obesity complicating pregnancy, second trimester; Z79.899 Other long term (current) drug therapy; Z98.890 Other specified postprocedural states; Z3A.22 22 weeks gestation of pregnancy
CPT/HCPCS: 36415; 80053; 85025; 96361; 96374; 99283; A9270; J2765; J7120

== ENCOUNTER 2020-04-01 05:17 | Inpatient (IN) | payer MEDICAID ==
[~2020-04-01 05:17] MED LIST: Lactated Ringers 500 ML IV ONE
[2020-04-01] MEDS ORDERED: Lactated Ringers 1,000 ML IV SCH (06:00)
[2020-04-01] MEDS ORDERED: cefOXitin 1 GM Vial ONE (06:45)
[2020-04-01] MEDS ORDERED: Oxytocin 10 Units/1 ML SDV ONE ×2 (06:45→07:05)
[2020-04-01] MEDS ORDERED: Ampicillin/Sulbactam Na 3 GM in Sodium Chloride 0.9% 100 ML IV ONE (07:00)
[2020-04-01] MEDS ORDERED: cefOXitin 2 GM Vial ONE (07:06)
[2020-04-01] MEDS ORDERED: ePHEDrine 50 MG/ML SDV ONE (07:06)
[2020-04-01] MEDS ORDERED: Ondansetron 4 MG/2 ML SDV ONE (07:43)
[2020-04-01] MEDS ORDERED: Phenylephrine 1% 10 MG/ML SDV ONE (07:51)
[2020-04-01] MEDS ORDERED: Lactated Ringers 1,000 ML ONE ×2 (07:55)
[2020-04-01] MEDS ORDERED: HYDROmorphone/Normal Saline 15 MG/30 ML PCA IV PRN (09:34)
[2020-04-01] MEDS ORDERED: Dextrose 5%-Lactated Ringers 1,000 ML IV SCH (09:45)
[2020-04-01] MEDS ORDERED: Ondansetron 4 MG/2 ML SDV IVPUSH PRN (09:48)
[2020-04-01] MEDS ORDERED: hydrOXYzine HCL 100 MG/2 ML SDV IM PRN (09:49)
[2020-04-01] MEDS ORDERED: Naloxone 0.4 MG/ML SDV IV PRN (10:00)
[2020-04-01] MEDS: Acetaminophen 500 MG Tab PO SCH ×3 (11:11→22:47)
[2020-04-01] MEDS: Ibuprofen 600 MG Tab PO SCH ×2 (12:03→17:50)
[2020-04-01] MEDS: Ampicillin/Sulbactam Na 3 GM in Sodium Chloride 0.9% 100 ML IV SCH ×2 (14:00→20:51)
[2020-04-02] MEDS: Ampicillin/Sulbactam Na 3 GM in Sodium Chloride 0.9% 100 ML IV SCH ×4 (01:48→21:05)
[2020-04-02] MEDS: Ibuprofen 600 MG Tab PO SCH ×4 (01:48→18:16)
[2020-04-02] MEDS: Acetaminophen 500 MG Tab PO SCH ×4 (05:39→21:05)
[2020-04-02] MEDS ORDERED: oxyCODONE 5 MG Tab PO PRN (06:59)
[2020-04-02] MEDS: Docusate Sodium 100 MG Cap PO SCH ×3 (08:40→21:19)
[2020-04-02] MEDS: Bisacodyl 5 MG Tab PO SCH ×3 (08:40→21:19)
--- NOTE | 2020-04-02 10:18 | PN ---
DATE OF SERVICE: 04/02/2020 SUBJECTIVE: Pepper is postoperative day #1 following a repeat and tubal ligation. She reports her pain is controlled. She has been on a regular diet. Oral intake 2200. Urine output via Hernandez catheter is 1625. REVIEW OF SYSTEMS: Remainder of review of systems negative for any pertinent positives and negatives. OBJECTIVE: GENERAL: Pepper Daily is a pleasant 24-year-old female. She is alert and orientated. VITAL SIGNS: TPR is 97.5, 90, 18, blood pressure 120/71. HEENT: Negative. NECK: Supple. HEART: Regular rate and rhythm. LUNGS: Clear. ABDOMEN: Incision has gauze between the lower abdominal folds. EXTREMITIES: Without peripheral edema. ASSESSMENT: 1. Repeat section with delivery of viable female infant. 2. Bilateral tubal ligation. PLAN: 1. Saline lock IV. 2. Discontinue Hernandez catheter. 3. Discontinue TEACHER PHYSICALLY IMPAIRED, continuous pulse ox. 4. Oxycodone 5 mg every 6 hours p.r.n. pain. 5. Colace 100 mg b.i.d. p.o. 6. Dulcolax 10 mg p.o. b.i.d. 7. Abdominal binder and to pull up lower abdominal fold to prevent skin from folding over incision. 8. We will evaluate p.r.n. or in a.m. 9. Plan discharge in a.m. Ely Perez PA-C /[id number]
[2020-04-03] MEDS: Ibuprofen 600 MG Tab PO SCH ×2 (01:39→06:25)
[2020-04-03] MEDS: Ampicillin/Sulbactam Na 3 GM in Sodium Chloride 0.9% 100 ML IV SCH ×2 (01:40→08:17)
[2020-04-03] MEDS: Acetaminophen 500 MG Tab PO SCH (05:32)
[2020-04-03 08:15] VITALS: BP 125/76; PULSE 89
[2020-04-03] MEDS: Docusate Sodium 100 MG Cap PO SCH (08:16)
[2020-04-03] MEDS: Bisacodyl 5 MG Tab PO SCH (08:16)
--- NOTE | 2020-04-03 10:34 | DISCH ---
ADMISSION DIAGNOSES: 1. Term . 2. Desired sterilization. 3. Breech presentation. 4. History of migraine headaches. 5. Gastroesophageal reflux disease. DISCHARGE DIAGNOSES: 1. section with delivery of viable female . 2. Bilateral tubal ligation. Date of surgical procedure, 04/01/2020. HISTORY: Pepper Ramos is a 24-year-old female who presents for repeat and tubal ligation. After preoperative evaluation, discussion of possible risks and possible complications, she wished to proceed with surgical procedure. HOSPITAL COURSE: Pepper had her section on 04/01/2020. She had no operative complications. On postoperative day 1, Hernandez catheter was discontinued. BLOCKER AUTOMATIC discontinued. She was started on oral pain medication and bowel stimulation. On postoperative day 2, she was able to be discharged to home. Vital signs were stable. Afebrile. Activity good. Oral intake adequate and voiding without any difficulty. PHYSICAL EXAMINATION: GENERAL: Pepper Ramos is a pleasant 24-year-old female. VITAL SIGNS: Height 5 feet 2 inches, weight is 230 pounds. TPR 98.1, 91, 18, blood pressure 112/64. HEENT: Negative. NECK: Supple. HEART: Regular rate and rhythm. LUNGS: Clear. ABDOMEN: Incision looks good, clean and dry. EXTREMITIES: Without peripheral edema. DISPOSITION: Discharged to home. CONDITION: Stable and improving. FOLLOWUP APPOINTMENT: With Ely Perez PA-C, 04/10/2020 at 10 a.m. Follow up with Alyson Heredia, 05/13/2020 at 11 a.m. HOME MEDICATIONS: Oxycodone 5 mg p.o. q.6 hours p.r.n. pain, #28; Colace 100 mg p.o. b.i.d. She is to resume vitamins 1 daily. Tylenol 1000 mg p.o. q.6 hours on schedule, ibuprofen 600 mg p.o. q.6 hours. DISCHARGE INSTRUCTIONS: Diet: Regular diet as tolerated. Drink 8 to 10 glasses of water a day. Activity: No lifting greater than 10 pounds, but may lift baby in car seat. Driving: Do not drive for 1 week and within 6 hours of taking oxycodone. Shower/bathing: May shower. No tub bathing or swimming for 6 weeks. Wound incision care: Keep operative site clean and dry. Wear abdominal binder to pull up lower abdominal fold to prevent skin folding over incision. Notify provider if any fever, increased pain, swelling, redness, nausea, or vomiting. Use incentive spirometer 10 times every hour while awake for 1 week. /[id number]
--- NOTE | 2020-04-11 11:03 | OR ---
DATE OF PROCEDURE: 04/01/2020 SURGEON: Leonides Bahena MD PREOPERATIVE DIAGNOSES: 1. Term with history of previous section. 2. Multiparity. POSTOPERATIVE DIAGNOSES: 1. Term with history of previous section. 2. Multiparity. 3. Incarcerated incisional hernia. OPERATIVE PROCEDURES: 1. Repeat section (52040). 2. Bilateral tubal ligation (41259). 3. Repair of incarcerated incisional hernia (91658). ANESTHESIA: Spinal. SECURITY PROJECT MANAGER: Keeley Heredia CNM INDICATIONS FOR PROCEDURE: This is a 24-year-old female presenting with term with history of previous section, has proceeded with a repeat section. She also met the criteria for a sterilization procedure i.e. bilateral tubal ligation per the Hospital Ethics Committee. Potential risks of the procedure including bleeding, infection, injury to mother and/or baby, possible failure of the tubal ligation over time to prevent either intrauterine or ectopic pregnancies as well as the possibility of not being reversible in a successful manner were all gone over, and the patient wishes to proceed. DETAILS OF THE PROCEDURE: The patient was taken to the operating room and placed in a supine position. After spinal anesthetic had been placed, a roll was positioned underneath the right hip to offload the vena cava and a Hernandez catheter inserted. The abdomen was then prepped and draped. Previously used transverse Pfannenstiel incision was then reused and carried down through the skin, subcutaneous tissue, and through the anterior rectus sheath. Subrectus sheath flaps were then raised superiorly and inferiorly. At the upper end of the rectus flap, the patient was noted to have splaying of the musculature with a herniation of omentum into the plane above the level of the rectus muscles. This area was excised and sent as a separate specimen. The rectus musculature was then down to the level of the pubis and the peritoneal reflection of the bladder on the uterus was divided and reflected downward. A transverse uterine incision was then made and a viable baby was then delivered through vertex presentation. The cord was clamped and cut and routine care given off the field per Keeley Heredia CNM. The patient was given IV and intrauterine Pitocin and IV cefoxitin. Good uterine contractions were noted. While the placental and membranes were delivered, uterus was then closed with 2 layers of 2-0 Vicryl stitch as was the peritoneal reflection of the bladder on the uterus. On each side, then the uterine tubes were then traced down to the fimbria and 1 cm segment of tube was excised, and both the remaining ends of the tube were instantly cauterized and the ends were suture ligated with 3-0 Prolene stitch. At this point, the uterus was placed back into the peritoneal cavity. The midline musculature was closed with #2 Vicryl stitch, which included repair of the incisional hernia on the superior aspect of the leaves of the rectus muscle. The rectus sheath was then approximated also with #2 Vicryl stitch and the subcutaneous tissue was irrigated with cefoxitin-containing saline solution. The subcutaneous tissue was then closed with 2 layers of 3-0 and 4-0 Vicryl stitch deep and a 4-0 Vicryl subcuticular stitch along with surgical glue, and the patient taken to the recovery room in satisfactory condition. Per ACOG guidelines, Keeley Heredia's assistance in this case was indicated and improved patient safety. Leonides Bahena MD /[id number]
== END 2020-04-03 10:01 | disposition home or self-care (01) | DRG 784 ==
LOC: JP.SDS 05:17 → JP.MS 07:57
PROVIDERS: ADMIT Nurse Practitioner Family; ATTEND Surgery
PROC: 10D00Z1 Extraction of Products of Conception, Low, Open Approach (ICD-10-PCS; principal; 2020-04-01)
PROC: 0UB70ZZ Excision of Bilateral Fallopian Tubes, Open Approach (ICD-10-PCS; 2020-04-01)
PROC: 0WQF0ZZ Repair Abdominal Wall, Open Approach (ICD-10-PCS; 2020-04-01)
DX: O34.211 Maternal care for low transverse scar from previous cesarean delivery (principal); K43.0 Incisional hernia with obstruction, without gangrene; Z37.0 Single live birth; Z3A.39 39 weeks gestation of pregnancy; O99.824 Streptococcus B carrier state complicating childbirth; O99.284 Endocrine, nutritional and metabolic diseases complicating childbirth; E03.9 Hypothyroidism, unspecified
CPT/HCPCS: 36415; 59409; 80053; 80305-QW; 85027; 86850; 86900; 86901; 88302; 88307; 94762; A9270-GY; J0295; J0694; J1170; J2370; J2405; J2590; J7120; J7121

== ENCOUNTER 2022-08-17 15:02 | Emergency (ER) | payer MEDICAID ==
[2022-08-17 15:30] VITALS: BP 114/72; PULSE 72
[2022-08-17] MEDS ORDERED: Dexamethasone 4 MG/ML SDV IVPUSH STA (16:52)
[2022-08-17] MEDS ORDERED: Ketorolac 15 MG/ML SDV IVPUSH ONE (16:52)
[2022-08-17] MEDS ORDERED: diphenhydrAMINE 50 MG/ML SDV IVPUSH ONE (16:52)
[2022-08-17] MEDS ORDERED: Sodium Chloride 0.9% 10 ML Syringe FLUSH PRN (16:52)
[2022-08-17] MEDS ORDERED: Sodium Chloride 0.9% 1,000 ML IV SCH (17:00)
== END 2022-08-17 18:42 | disposition home or self-care (01) ==
LOC: JP.ED 15:02
DX: G43.911 Migraine, unspecified, intractable, with status migrainosus (principal); J01.40 Acute pansinusitis, unspecified; J30.2 Other seasonal allergic rhinitis; E03.9 Hypothyroidism, unspecified; E78.00 Pure hypercholesterolemia, unspecified; K21.9 Gastro-esophageal reflux disease without esophagitis; E66.9 Obesity, unspecified; Z68.43 Body mass index [BMI] 50.0-59.9, adult; Z79.899 Other long term (current) drug therapy
CPT/HCPCS: 96361; 96374; 96375; 99283; J1100; J1200; J1885; J3490; J7030

== ENCOUNTER 2023-02-19 11:31 | Emergency (ER) | payer MEDICAID ==
[2023-02-19 11:49] VITALS: BP 151/95; PULSE 90
[2023-02-19] MEDS ORDERED: Ketorolac 30 MG/ML SDV IVPUSH ONE (12:11)
[2023-02-19] MEDS ORDERED: Sodium Chloride 0.9% 10 ML Syringe FLUSH PRN (12:11)
[2023-02-19] MEDS ORDERED: Ondansetron 4 MG/2 ML SDV IVPUSH ONE (12:11)
[2023-02-19] MEDS ORDERED: diphenhydrAMINE 50 MG/ML SDV IVPUSH ONE (12:11)
[2023-02-19] MEDS ORDERED: Sodium Chloride 0.9% 1,000 ML IV ONE (12:11)
== END 2023-02-19 13:52 | disposition home or self-care (01) ==
LOC: JP.ED 11:31
DX: G43.919 Migraine, unspecified, intractable, without status migrainosus (principal); E03.9 Hypothyroidism, unspecified; E66.9 Obesity, unspecified; Z68.43 Body mass index [BMI] 50.0-59.9, adult; Z79.899 Other long term (current) drug therapy
CPT/HCPCS: 96361; 96374; 96375; 99283; J1200; J1885; J2405; J7030